=== PATIENT | female | born 1945 | race Caucasian/White ===

== ENCOUNTER 2018-10-05 19:08 | Emergency (ER) | payer OTHER ==
[~2018-10-05] VITALS: Ht 165.1 cm; Wt 68.0 kg
[2018-10-05 19:08] VITALS: BP 173/82
--- NOTE | 2018-10-05 19:08 | NUR ---
PATIENT BIBA TO BED 11.
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
--- NOTE | 2018-10-05 19:23 | NUR ---
BEDSIDE EKG BEING DONE AT THIS TIME BY EMT.
--- NOTE | 2018-10-05 19:25 | NUR ---
EKG PERFORMED AT BEDSIDE. PT COVERED IN GOWN DURING PROCEDURE
--- NOTE | 2018-10-05 19:32 | NUR ---
PT TAKEN TO RADIOLOGY VIA [facility] BY [employer].
[2018-10-05] MEDS ORDERED: ACETAMINOPHEN 325 MG TAB PO ONE (19:45)
--- NOTE | 2018-10-05 20:18 | NUR ---
PT BACK FROM RADIOLIGY, SAFETY PRECAUTIONS IN PLACE. PT STATES THE FEELING IN HER ARM IS COMING BACK AND PAIN HAS DECREASED. PAIN MEDS TO BE ADMINISTERED.
--- NOTE | 2018-10-05 21:07 | NUR ---
PT ACTING APPROPRIATLY TALKING TO DAUGHTER ON CELL PHONE. PT STATES PAIN HAS DECREASED TO 5/10 AND FEELING BETTER.
[2018-10-05 21:46] VITALS: BP 166/78
--- NOTE | 2018-10-05 21:46 | NUR ---
Patient discharged with v/s stable. Written and verbal after care instructions given and explained. Patient alert, oriented and verbalized understanding of instructions. Ambulatory with steady gait. All questions addressed prior to discharge. ID band removed. Patient advised to follow up with PMD. Rx of tylenol, tramadol given. Patient educated on indication of medication including possible reaction and side effects. Opportunity to ask questions provided and answered.
== END 2018-10-05 21:46 | disposition home or self-care (01) ==
LOC: MED 19:08
DX: R07.89 Other chest pain (principal)
CPT/HCPCS: 71101; 71120; 72125; 73030; 93005; 99284